=== PATIENT | male | born 1970 | race Caucasian/White ===

== ENCOUNTER 2018-03-27 01:32 | Inpatient (IN) | payer SELFPAY ==
[2018-03-27] MEDS ORDERED: RINGERS SOLUTION,LACTATED 2,000 ML IV ONE (01:39)
[2018-03-27] MEDS ORDERED: ACETAMINOPHEN 325 MG TABLET PO ONE (01:47)
[2018-03-27] MEDS ORDERED: IPRATROPIUM/ALBUTEROL 0.5-2.5 MG/3 ML AMPUL NEB ONE (01:49)
--- NOTE | 2018-03-27 01:49 | ER Document Report ---
ED General - General Chief Complaint: High Blood Sugar Stated Complaint: BLOOD SUGAR PROBLEMS Time Seen by Provider: 03/27/18 01:38 Cannot obtain history due to: Uncooperative, Altered mental status Notes: Patient is a 47-year-old male with a past medical history of diabetes, noncompliant with medications who presents with 4 days of progressively worsening body aches, nausea, vomiting, lack of appetite and cough. The patient is a very poor historian, is unable to tell me whether or not he has had fever. Admits that he does not take his medications as prescribed. He is unable to tell me what improves or worsens his symptoms. EMS states that he was likewise very guarded with history providing with them. The patient is not from the area, has never been to this hospital. Patient denies a history of similar symptoms in the past. TRAVEL OUTSIDE OF THE [place] IN LAST 30 DAYS: No - Related Data Allergies/Adverse Reactions: No Known Allergies Allergy (Unverified 03/27/18 01:39) Past Medical History - General Information source: Patient, Emergency Med Personnel Cannot obtain history due to: Uncooperative, Altered mental status - Social History Smoking Status: Current Every Day Smoker Frequency of alcohol use: Occasional Drug Abuse: None Lives with: Alone Family History: Reviewed & Not Pertinent Review of Systems - Review of Systems Notes: Constitutional: Positive for body aches HENT: Negative for sore throat. Eyes: Negative for visual changes. Cardiovascular: Negative for chest pain. Respiratory: Positive cough and shortness of breath Gastrointestinal: Negative for abdominal pain, positive for nausea and vomiting Genitourinary: Negative for dysuria. Musculoskeletal: Negative for back pain. Skin: Negative for rash. Neurological: Negative for headaches, weakness or numbness. 10 point ROS negative except as marked above and in HPI. Physical Exam - Vital signs Vitals: Temp Pulse Resp Pulse Ox 99.8 F 129 H 22 H 86 L 03/27/18 01:38 03/27/18 01:38 03/27/18 01:38 03/27/18 01:38 Interpretation: Tachycardic, Hypoxic, Tachypneic Notes: PHYSICAL EXAMINATION: GENERAL: Ill in appearance but in no acute distress HEAD: Atraumatic, normocephalic. EYES: Pupils equal round and reactive to light, extraocular movements intact, sclera anicteric, conjunctiva are normal. ENT: nares patent, oropharynx clear without exudates. Dry mucous membranes. NECK: Normal range of motion, supple without lymphadenopathy LUNGS: Scattered wheezing all lung nails. Mild tachypnea. No distress. HEART: Regular tachycardia without murmurs ABDOMEN: Soft, nontender, normoactive bowel sounds. No guarding, no rebound. No masses appreciated. EXTREMITIES: Normal range of motion, no pitting or edema. No cyanosis. NEUROLOGICAL: No focal neurological deficits. Moves all extremities spontaneously and on command. PSYCH: Extremely poor historian. Somewhat lethargic but does SKIN: Warm, Dry, there is what appears to be a healing area of cellulitis to the left pelvic region without any active fluctuance or warmth to palpation. Course - Re-evaluation Re-evalutation: 03/27/18 01:47 Patient is an ill-appearing 47-year-old male who presents tachycardic, hypoxemic, and somewhat lethargic although does respond to all questions appro priately. Patient does report for the past 1 week he has had progressive deterioration with cough, subjective fever, body aches and hyperglycemia. He is type II diabetic, noncompliant with medications and his blood glucose in the field was 546. Field lactate testing was 3.4. The patient does also have a healing area of cellulitis to his left lower abdomen just above the pubis symphysis. There is a scabbed over area when pullback there is a scant amount of purulent drainage although no appreciable fluid collection. Patient has been started on aggressive IV fluid rehydration with 2 L of lactated Ringer's, labs, chest x-ray and influenza testing will be completed. Primary concern at this point is for a possible diabetic ketoacidosis in conjunction with a probable pneumonia versus influenza. Patient is in guarded condition, will require frequent and regular reassessments. 03/27/18 02:35 Patient is flu a positive which is consistent with his clinical picture of tachycardia, hypoxemia and has an associated hyperglycemia without evidence of DKA or HHS. He is continued to receive IV fluids. Given that he is ill enough to require hospitalization oseltamivir has been initiated. Awaiting chest x-ray and the remainder of labs. Will continue to reassess at regular intervals. Patient does remain tachycardic although is no longer hypoxemic on 4 L of supplemental nasal cannula which he does not normally use. 03/27/18 03:16 Chest x-ray does show a visible left lower lobe pneumonia. Levofloxacin has likewise been initiated. I have discussed with the hospitalist who has accepted the patient for admission. - Vital Signs Vital signs: Temp Pulse Resp BP Pulse Ox 99.8 F 129 H 22 H 137/87 H 91 L 03/27/18 01:38 03/27/18 01:47 03/27/18 02:00 03/27/18 01:47 03/27/18 02:00 - Laboratory Result Diagrams: 03/27/18 00:53 03/27/18 00:53 Laboratory results interpreted by me: 03/27/18 03/27/18 03/27/18 00:53 00:53 00:53 WBC 23.6 H Seg Neuts % (Manual) 87 H Lymphocytes % (Manual) 6 L Abs Neuts (Manual) 21.5 H Sodium 128.3 L Chloride 79 L Carbon Dioxide 31 H BUN 23 H Glucose 477 H* Hemoglobin A1c % 11.3 H Calcium 10.4 H Direct Bilirubin 0.5 H ALT 16 L Alkaline Phosphatase 174 H Total Protein 8.4 H Urine Protein Urine Glucose (UA) Urine Ketones Urine Blood 03/27/18 02:01 WBC Seg Neuts % (Manual) Lymphocytes % (Manual) Abs Neuts (Manual) Sodium Chloride Carbon Dioxide BUN Glucose Hemoglobin A1c % Calcium Direct Bilirubin ALT Alkaline Phosphatase Total Protein Urine Protein 30 H Urine Glucose (UA) >=500 H Urine Ketones 80 H Urine Blood SMALL H - Diagnostic Test Radiology reviewed: Image reviewed, Reports reviewed Radiology results interpreted by me: 03/27/18 03:19 Chest x-ray: Left lower lobe infiltrate - EKG Interpretation by Me Additional EKG results interpreted by me: 03/27/18 03:20 Sinus tachycardia, rate 128. No ST elevations or runs. QTC is 450. Critical Care Note - Critical Care Note Total time excluding time spent on procedures (mins): 38 Comments: Critical care time spent obtaining history from patient or surrogate, discussions with consultants, development of treatment plan with patient or surrogate, evaluation of patient's response to treatment, examination of patient, ordering and performing treatments and interventions, ordering and review of laboratory studies, re-evaluation of patient's condition, ordering and review of radiographic studies and review of old charts Discharge - Discharge Clinical Impression: Influenza, Hypoxia, Hyperglycemia Left lower lobe pneumonia Qualifiers: Pneumonia type: due to unspecified organism Qualified Code(s): J18.1 - Lobar pneumonia, unspecified organism Condition: Fair Disposition: ADMITTED INPATIENT Admitting Provider: Hospitalist Unit Admitted: [facility]
[2018-03-27 02:05] LABS: HEMATOCRIT 48.2 % (37.9-51.0); HEMOGLOBIN 16.8 g/dL (13.5-17.0); MEAN CORPUSCULAR HEMOGLOBIN 31.3 pg (27.0-33.4); MEAN CORPUSCULAR HGB CONC 34.9 g/dL (32.0-36.0); MEAN CORPUSCULAR VOLUME 90 fl (80-97); PLATELET COUNT 303 10^3/uL (150-450); RED BLOOD COUNT 5.37 10^6/uL (4.35-5.55); WHITE BLOOD COUNT 23.6 10^3/uL (4.0-10.5)
[2018-03-27 02:15] LABS: APPEARANCE,URINE CLEAR; BILIRUBIN,URINE NEGATIVE (NEGATIVE); COLOR,URINE YELLOW; GLUCOSE, URINE >=500 mg/dL (NEGATIVE); KETONES,URINE 80 mg/dL (NEGATIVE); LEUKOCYTE ESTERASE,URINE NEGATIVE (NEGATIVE); NITRITE,URINE NEGATIVE (NEGATIVE); PROTEIN,URINE 30 mg/dL (NEGATIVE); URINE SPECIFIC GRAVITY 1.028; UROBILINOGEN,URINE NEGATIVE mg/dL (<2.0)
[2018-03-27 02:18] LABS: ALANINE AMINOTRANSFERASE 16 U/L (21-72); ALBUMIN 4.2 g/dL (3.5-5.0); ALKALINE PHOSPHATASE 174 U/L (38-126); ANION GAP 18 (5-19); ASPARTATE AMINO TRANSFERASE 29 U/L (17-59); BILIRUBIN,DIRECT 0.5 mg/dL (0.0-0.4); BLOOD UREA NITROGEN 23 mg/dL (7-20); CALCIUM 10.4 mg/dL (8.4-10.2); CARBON DIOXIDE 31 mmol/L (22-30); CHLORIDE 79 mmol/L (98-107); POTASSIUM 4.6 mmol/L (3.6-5.0); SODIUM 128.3 mmol/L (137-145); TOTAL PROTEIN 8.4 g/dL (6.3-8.2)
[2018-03-27 02:27] LABS: GLUCOSE 477 mg/dL (75-110)
[2018-03-27 02:31] LABS: A TYPE INFLUENZA AG POSITIVE (NEGATIVE); B INFLUENZA AG NEGATIVE (NEGATIVE)
[2018-03-27 02:34] LABS: ABSOLUTE LYMPHOCYTES# (MANUAL) 1.4 10^3/uL (0.5-4.7); ABSOLUTE MONOCYTES # (MANUAL) 0.7 10^3/uL (0.1-1.4); ABSOLUTE NEUTROPHILS# (MANUAL) 21.5 10^3/uL (1.7-8.2); BAND NEUTROPHILS % (MANUAL) 4 % (3-5); BASOPHILS % (MANUAL) 0 % (0-2); EOSINOPHILS % (MANUAL) 0 % (0-6); LYMPHOCYTES % (MANUAL) 6 % (13-45); MONOCYTES % (MANUAL) 3 % (3-13); SEGMENTED NEUTROPHILS % (MAN) 87 % (42-78); TOTAL CELLS COUNTED 100
[2018-03-27] MEDS ORDERED: OSELTAMIVIR PHOSPHATE 75 MG CAPSULE PO ONE (02:34)
[2018-03-27 02:37] LABS: TOXIC GRANULATION SLIGHT
[2018-03-27 02:38] LABS: PLATELET COMMENT ADEQUATE; TEAR DROP CELLS 1+
[2018-03-27 02:53] LABS: VENOUS BLOOD BASE EXCESS 0.7 mmol/L; VENOUS BLOOD HCO3 26.3 mmol/L (20-32); VENOUS BLOOD PCO2 45.5 mmHg (35-63); VENOUS BLOOD PH 7.38 (7.30-7.42)
--- NOTE | 2018-03-27 03:07 | RADIOLOGY REPORT (SQ) ---
EXAM DESCRIPTION: XR CHEST 1 VIEW COMPLETED DATE/TME: 03/27/2018 01:39 CLINICAL HISTORY: 47 years, Male, left rib pain COMPARISON: None. NUMBER OF VIEWS: 1 TECHNIQUE: Frontal view chest LIMITATIONS: None. FINDINGS: The heart size is normal. Airspace opacity in the left lung base extending to the left perihilar region likely reflecting pneumonia. Recommend follow-up to resolution. No pneumothorax. IMPRESSION: Left basilar/left perihilar pneumonia. Recommend follow-up to resolution copyright 2010 [employer]- All Rights Reserved
[2018-03-27] MEDS ORDERED: LEVOFLOXACIN 750 MG/D5W RTU 750 MG/150 ML RTUPB IV ONE (03:15)
[2018-03-27] MEDS ORDERED: RINGERS SOLUTION,LACTATED 1,000 ML IV ONE (03:19)
[2018-03-27] MEDS ORDERED: INSULIN REG, HUMAN 100 UNIT/ML 3 ML VIAL (PYX) IV ONE (03:19)
[2018-03-27] MEDS ORDERED: ONDANSETRON 4 MG TAB.RAPDIS PO PRN (04:02)
[2018-03-27] MEDS ORDERED: MAGNESIUM HYDROXIDE SUSP 30 ML UDCUP PO PRN (04:02)
[2018-03-27] MEDS ORDERED: NORMAL SALINE 1000 ML 1,000 ML IV PRN (04:02)
[2018-03-27] MEDS ORDERED: ONDANSETRON HCL INJ/PF 4 MG/2 ML SDV IV PRN (04:02)
[2018-03-27] MEDS ORDERED: MAG HYDROX/AL HYDROX/SIMETH SUSP 30 ML UDCUP PO PRN (04:02)
[2018-03-27] MEDS ORDERED: MORPHINE SULFATE 10 MG/ML INJ IV PRN (04:08)
[2018-03-27] MEDS ORDERED: ACETAMINOPHEN 650 MG SUPP.RECT PR PRN (04:11)
[2018-03-27] MEDS ORDERED: DEXTROSE 50%-WATER 25 GM/50 ML DISP.SYRIN IV PRN ×2 (04:12)
[2018-03-27] MEDS ORDERED: DEXTROSE 40% GEL 15 GM TUBE PO PRN ×2 (04:12)
[2018-03-27] MEDS ORDERED: GLUCAGON,HUMAN RECOMB 1 MG INJ IM PRN (04:12)
[2018-03-27] MEDS: MORPHINE SULFATE 10 MG/ML INJ IV PRN ×4 (05:57→21:57)
[2018-03-27] MEDS: HEPARIN SOD (PORCINE) 5,000 UNIT/ML 1 ML SYRINGE SUBCUT SCH ×3 (05:58→21:47)
[2018-03-27] MEDS: INSULIN REG, HUMAN 100 UNIT/ML 3 ML VIAL (PYX) SUBCUT PRN ×4 (06:14→23:52)
--- NOTE | 2018-03-27 06:33 | PDOC H&P ---
History of Present Illness Admission Date/PCP: 03/27/18 03:29 Patient complains of: Malaise History of Present Illness: TYRELL FLORES is a 47 year old male who presented to the emergency room with a 4-day history of progressively worsening malaise. He admitted body aches (chest and torso) with associated decrease in appetite as well as a nonproductive paroxysmal cough with rare post-tussive emesis. He currently rates his malaise/body aches as severe and denies prior similar episodes. The body (especially chest) pain is made much worse by coughing. He has not identified any other aggravating or any ameliorating factors for his malaise/body aches and he has not taken anything to treat his symptoms at home. He admits that he does not take his prescribed medications or follow a recommended diet for his diabetes. In the emergency room he was found to be severely hyperglycemic as well as influenza A positive. He was also noted to have a significant misael kocytosis and a left lower lobe interstitial pneumonia on his chest x-ray. He was noted to be significantly hypoxic and required supplemental oxygen to maintain an adequate O2 saturation. With these findings he was admitted to the hospital for further evaluation and treatment. Past Medical History Cardiac Medical History: Denies: Coronary Artery Disease, DVT, Myocardial Infarction, Hypertension, Pulmonary Embolism Pulmonary Medical History: Denies: Asthma, Chronic Obstructive Pulmonary Disease (COPD), Sleep Apnea, Tuberculosis EENT Medical History: Reports: None Neurological Medical History: Denies: Multiple Sclerosis, Seizures Endocrine Medical History: Reports: Diabetes Mellitus Type 2 Denies: Diabetes Mellitus Type 1, Obesity Renal/ Medical History: Denies: Chronic Kidney Disease, Nephrolithiasis Malignancy Medical History: Reports: None GI Medical History: Denies: Cirrhosis, Hepatitis Musculoskeltal Medical History: Denies: Arthritis, Gout Skin Medical History: Denies: Eczema, Psoriasis Psychiatric Medical History: Reports: Tobacco Dependency Denies: Alcohol Dependency, Substance Abuse Traumatic Medical History: Reports: None Hematology: Denies: Anemia, Bleeding Tendencies Infectious Medical History: Reports: None Past Surgical History Past Surgical History: Reports: Appendectomy Social History Information Source: Patient Lives with: Alone Smoking Status: Current Every Day Smoker Frequency of Alcohol Use: None Hx Recreational Drug Use: No Drugs: None Hx Prescription Drug Abuse: No - Advance Directive Resuscitation Status: Full Code Surrogate healthcare decision maker:: Elvie Alba Family History Family History: DM Parental Family History Reviewed: Yes Children Family History Reviewed: No Sibling(s) Family History Reviewed.: Yes Medication/Allergy Allergies/Adverse Reactions: No Known Allergies Allergy (Unverified 03/27/18 01:39) Review of Systems Constitutional: PRESENT: as per HPI, fatigue, other - Malaise. ABSENT: chills, fever(s) Eyes: ABSENT: visual disturbances, other - Ocular pain Ears: ABSENT: hearing changes, other - Ear pain Nose, Mouth, and Throat: ABSENT: mouth pain, sore throat Cardiovascular: PRESENT: as per HPI, chest pain, dyspnea on exertion. ABSENT: edema, orthropnea, palpitations Respiratory: PRESENT: cough, dyspnea. ABSENT: hemoptysis, sputum Gastrointestinal: PRESENT: nausea, vomiting. ABSENT: abdominal pain, constipation, diarrhea Genitourinary: ABSENT: dysuria, hematuria Musculoskeletal: ABSENT: deformity, joint swelling Integumentary: ABSENT: pruritus, rash Neurological: ABSENT: confusion, convulsions, memory loss Psychiatric: ABSENT: anxiety, depression Endocrine: ABSENT: cold intolerance, heat intolerance Hematologic/Lymphatic: ABSENT: easy bleeding, easy bruising Physical Exam Vital Signs: Temp Pulse Resp BP Pulse Ox 99.8 F 129 H 21 H 102/70 97 03/27/18 01:38 03/27/18 01:47 03/27/18 03:01 03/27/18 03:01 03/27/18 03:01 Intake & Output 03/25/18 03/26/18 03/27/18 23:59 23:59 23:59 Intake Total 1999 Balance 1999 Weight 66.7 kg General appearance: PRESENT: no acute distress, cooperative Head exam: PRESENT: atraumatic, normocephalic Eye exam: PRESENT: conjunctiva pink, EOMI. ABSENT: scleral icterus Ear exam: PRESENT: normal external ear exam. ABSENT: drainage Mouth exam: PRESENT: dry mucosa, neck supple Neck exam: ABSENT: thyromegaly, tracheal deviation Respiratory exam: PRESENT: symmetrical, tachypnea. ABSENT: accessory muscle use, retraction Cardiovascular exam: PRESENT: RRR. ABSENT: clicks, gallop, rubs Pulses: PRESENT: normal radial pulses, normal dorsalis pedis pul Vascular exam: PRESENT: normal capillary refill. ABSENT: pallor GI/Abdominal exam: PRESENT: normal bowel sounds, soft Rectal exam: PRESENT: deferred Extremities exam: ABSENT: joint swelling, pedal edema Musculoskeletal exam: PRESENT: ambulatory. ABSENT: deformity, dislocation Neurological exam: PRESENT: alert, oriented to person, oriented to place, oriented to time, oriented to situation, CN II-XII grossly intact. ABSENT: motor sensory deficit Psychiatric exam: PRESENT: appropriate affect, normal mood Skin exam: PRESENT: dry, intact, warm. ABSENT: jaundice, rash, urticaria Results Laboratory Results: 03/27/18 00:53 03/27/18 00:53 03/27/18 03/27/18 03/27/18 00:53 00:53 02:01 WBC 23.6 H RBC 5.37 Hgb 16.8 Hct 48.2 MCV 90 MCH 31.3 MCHC 34.9 RDW 13.0 Plt Count 303 Seg Neutrophils % Not Reportable Lymphocytes % Not Reportable Monocytes % Not Reportable Eosinophils % Not Reportable Basophils % Not Reportable Absolute Neutrophils Not Reportable Absolute Lymphocytes Not Reportable Absolute Monocytes Not Reportable Absolute Eosinophils Not Reportable Absolute Basophils Not Reportable VBG pH VBG pCO2 VBG HCO3 VBG Base Excess Sodium 128.3 L Potassium 4.6 Chloride 79 L Carbon Dioxide 31 H Anion Gap 18 BUN 23 H Creatinine 0.78 Est GFR ( Amer) > 60 Est GFR (Non-Af Amer) > 60 Glucose 477 H* Lactic Acid Calcium 10.4 H Total Bilirubin 1.0 AST 29 ALT 16 L Alkaline Phosphatase 174 H Total Protein 8.4 H Albumin 4.2 Urine Color YELLOW Urine Appearance CLEAR Urine pH 5.0 Ur Specific [place] 1.028 Urine Protein 30 H Urine Glucose (UA) >=500 H Urine Ketones 80 H Urine Blood SMALL H Urine Nitrite NEGATIVE Ur Leukocyte Esterase NEGATIVE Urine WBC (Auto) 1 03/27/18 03/27/18 02:38 02:38 WBC RBC Hgb Hct MCV MCH MCHC RDW Plt Count Seg Neutrophils % Lymphocytes % Monocytes % Eosinophils % Basophils % Absolute Neutrophils Absolute Lymphocytes Absolute Monocytes Absolute Eosinophils Absolute Basophils VBG pH 7.38 VBG pCO2 45.5 VBG HCO3 26.3 VBG Base Excess 0.7 Sodium Potassium Chloride Carbon Dioxide Anion Gap BUN Creatinine Est GFR ( Amer) Est GFR (Non-Af Amer) Glucose Lactic Acid 2.6 H Calcium Total Bilirubin AST ALT Alkaline Phosphatase Total Protein Albumin Urine Color Urine Appearance Urine pH Ur Specific [place] Urine Protein Urine Glucose (UA) Urine Ketones Urine Blood Urine Nitrite Ur Leukocyte Esterase Urine WBC (Auto) 03/27/18 00:53 Troponin I < 0.012 Impressions: Chest X-Ray 03/27/18 01:39 IMPRESSION: Left basilar/left perihilar pneumonia. Recommend follow-up to resolution copyright 2010 [email or web address]- All Rights Reserved Assessment & Plan - Diagnosis (1) SIRS due to infectious process with acute organ dysfunction Is this a current diagnosis for this admission?: Yes Plan: Patient will be served closely for signs of sepsis although this is most likely a influenza a caused systemic immune response syndrome. Serial determinations of patient's CBC and lactic acid should help to clarify the situation. His malaise and other general symptoms will be treated with Tylenol as needed for pain and additionally he will be able to use morphine sulfate administered intravenously on a sliding scale basis as needed for control of his discomfort. (2) Left lower lobe pneumonia Qualifiers: Pneumonia type: due to influenza A virus Qualified Code(s): J11.00 - Influenza due to unidentified influenza virus with unspecified type of pneumonia Is this a current diagnosis for this admission?: Yes Plan: Patient will be treated with an aggressive pulmonary toilet utilizing Xopenex, Atrovent, Pulmicort and albuterol. Empiric antibiotic therapy with Levaquin 750 mg daily as well as Tamiflu 75 mg p.o. twice daily will be initiated as patient is noted to be a cigarette smoker. (3) Acute respiratory failure with hypoxia Is this a current diagnosis for this admission?: Yes Plan: Patient will be treated with supplemental oxygen basis. Additionally he will receive symptomatic and supportive cares as required. (4) Diabetes mellitus type 2 in nonobese Is this a current diagnosis for this admission?: Yes Plan: A hemoglobin A1c will be obtained to evaluate the patient's diabetic care status. He will be initially treated with sliding scale regular insulin before meals and at bedtime. He will be started on a diabetic diet. Further treatment will be permanent after initial evaluation and therapy have been established long enough to determine further needs. (5) Influenza A Is this a current diagnosis for this admission?: Yes Plan: Patient will be treated with Tamiflu 75 mg p.o. twice daily and will otherwise receive symptomatic and supportive cares. - Time Time Spent: 30 to 50 Minutes Critical Time spent with patient: Less than 15 minutes Smoking Cessation Education: 3 to 10 minutes Anticipated discharge: Home - Inpatient Certification Based on my medical assessment, after consideration of the patient's comorbidities, presenting symptoms, or acuity I expect that the services needed warrant INPATIENT care.: Yes I certify that my determination is in accordance with my understanding of Medicare's requirements for reasonable and necessary INPATIENT services [42 CFR 412.3e].: Yes Medical Necessity: Significant Comorbidiites Make Outpatient Treatment Too Risky, Need Close Monitoring Due to Risk of Patient Decompensation, Need for Nebulizer Therapy and Monitoring of Response, Risk of Complication if Not Cared For in Hospital
[2018-03-27] MEDS: ACETYLCYSTEINE 20% SOLN 800 MG/4 ML VIAL.NEB NEB SCH ×2 (08:07→19:50)
[2018-03-27] MEDS: IPRATROPIUM BROMIDE 0.02% NEB 0.5 MG/2.5 ML AMPUL NEB SCH ×3 (08:14→23:48)
[2018-03-27] MEDS: LEVALBUTEROL HCL NEB 1.25 MG/3 ML AMPUL NEB SCH ×3 (08:14→23:48)
[2018-03-27] MEDS: BUDESONIDE NEB 0.5 MG/2 ML AMPUL NEB SCH ×2 (08:14→19:50)
[2018-03-27] MEDS: DOCUSATE SODIUM 100 MG CAPSULE PO SCH ×2 (10:07→17:13)
[2018-03-27] MEDS: LEVOFLOXACIN 750 MG TABLET PO SCH (10:07)
[2018-03-27] MEDS: FAMOTIDINE 20 MG TABLET PO SCH ×2 (10:07→21:46)
[2018-03-27] MEDS: OSELTAMIVIR PHOSPHATE 75 MG CAPSULE PO SCH ×2 (10:10→17:14)
[2018-03-27] MEDS ORDERED: INSULIN REG, HUMAN 100 UNIT/ML 3 ML VIAL (PYX) SUBCUT ONE (10:30)
[2018-03-27] MEDS: ACETAMINOPHEN 325 MG TABLET PO PRN ×2 (11:16→21:46)
[2018-03-27] MEDS: NORMAL SALINE 1000 ML 1,000 ML IV PRN ×2 (12:50→19:56)
--- NOTE | 2018-03-27 12:52 | EKG REPORT ---
SEVERITY:- BORDERLINE ECG - SINUS TACHYCARDIA ATRIAL PREMATURE COMPLEX BORDERLINE RIGHT AXIS DEVIATION BORDERLINE R WAVE PROGRESSION, ANTERIOR LEADS : Confirmed by: Alejandro Aburto 27-Mar-2018 12:51:32
[2018-03-27] MEDS: ALBUTEROL SULFATE 0.083% NEB 2.5 MG/3 ML AMPUL NEB PRN (19:50)
[2018-03-28] MEDS: NORMAL SALINE 1000 ML 1,000 ML IV PRN ×3 (03:01→20:09)
[2018-03-28] MEDS: HEPARIN SOD (PORCINE) 5,000 UNIT/ML 1 ML SYRINGE SUBCUT SCH ×3 (05:05→21:37)
[2018-03-28 06:20] LABS: HEMATOCRIT 35.6 % (37.9-51.0); MEAN CORPUSCULAR HEMOGLOBIN 30.8 pg (27.0-33.4); MEAN CORPUSCULAR HGB CONC 34.5 g/dL (32.0-36.0); MEAN CORPUSCULAR VOLUME 89 fl (80-97); PLATELET COUNT 195 10^3/uL (150-450); RED BLOOD COUNT 3.98 10^6/uL (4.35-5.55); RED CELL DISTRIBUTION WIDTH 12.9 % (11.5-14.0); WHITE BLOOD COUNT 16.4 10^3/uL (4.0-10.5)
[2018-03-28 06:38] LABS: ANION GAP 13 (5-19); BLOOD UREA NITROGEN 13 mg/dL (7-20); CALCIUM 8.2 mg/dL (8.4-10.2); CARBON DIOXIDE 24 mmol/L (22-30); CHLORIDE 92 mmol/L (98-107); GLUCOSE 225 mg/dL (75-110); SODIUM 128.6 mmol/L (137-145); TRIGLYCERIDES 203 mg/dL (<150)
[2018-03-28 06:51] LABS: DIRECT LDL < 30 mg/dL (<100); VLDL CHOLESTEROL 40.6 mg/dL (10-31)
[2018-03-28 07:07] LABS: HEMOGLOBIN 12.3 g/dL (13.5-17.0)
[2018-03-28 07:10] LABS: ABSOLUTE LYMPHOCYTES# (MANUAL) 1.5 10^3/uL (0.5-4.7); ABSOLUTE MONOCYTES # (MANUAL) 1.1 10^3/uL (0.1-1.4); ABSOLUTE NEUTROPHILS# (MANUAL) 13.8 10^3/uL (1.7-8.2); BASOPHILS % (MANUAL) 0 % (0-2); EOSINOPHILS % (MANUAL) 0 % (0-6); LYMPHOCYTES % (MANUAL) 9 % (13-45); MONOCYTES % (MANUAL) 7 % (3-13); SEGMENTED NEUTROPHILS % (MAN) 84 % (42-78); TOTAL CELLS COUNTED 100
[2018-03-28 07:11] LABS: PLATELET COMMENT ADEQUATE; RBC MORPHOLOGY COMMENT NORMO-CYTIC/CHROMIC
[2018-03-28] MEDS: ACETYLCYSTEINE 20% SOLN 800 MG/4 ML VIAL.NEB NEB SCH ×2 (08:16→20:11)
[2018-03-28] MEDS: BUDESONIDE NEB 0.5 MG/2 ML AMPUL NEB SCH ×2 (08:16→20:11)
[2018-03-28] MEDS: LEVALBUTEROL HCL NEB 1.25 MG/3 ML AMPUL NEB SCH ×2 (08:16→16:11)
[2018-03-28] MEDS: IPRATROPIUM BROMIDE 0.02% NEB 0.5 MG/2.5 ML AMPUL NEB SCH ×2 (08:16→16:11)
[2018-03-28] MEDS: INSULIN REG, HUMAN 100 UNIT/ML 3 ML VIAL (PYX) SUBCUT PRN ×3 (08:55→22:27)
[2018-03-28] MEDS: DOCUSATE SODIUM 100 MG CAPSULE PO SCH ×2 (09:50→17:20)
[2018-03-28] MEDS: OSELTAMIVIR PHOSPHATE 75 MG CAPSULE PO SCH ×2 (09:50→17:19)
[2018-03-28] MEDS: LEVOFLOXACIN 750 MG TABLET PO SCH (09:50)
[2018-03-28] MEDS: FAMOTIDINE 20 MG TABLET PO SCH ×2 (09:52→21:37)
[2018-03-28] MEDS: ACETAMINOPHEN 325 MG TABLET PO PRN (13:38)
[2018-03-28] MEDS ORDERED: IBUPROFEN 800 MG TABLET PO PRN (14:58)
--- NOTE | 2018-03-28 15:05 | PDOC PROGRESS REPORT ---
Subjective Progress Note for:: 03/28/18 Subjective:: No adverse events overnight. Still running some elevated temperatures intermittently. He still feels pretty miserable. He is drinking some fluids but his urine is still pretty concentrated. His appetite is not very good. Reason For Visit: SIRS OF INFECTIOUS ETIOLOGY INFLUENZA A PNEUMONIA Physical Exam Vital Signs: Temp Pulse Resp BP Pulse Ox 100.1 F 133 H 20 120/73 95 03/28/18 11:50 03/28/18 11:50 03/28/18 11:50 03/28/18 11:50 03/28/18 11:50 Intake & Output 03/27/18 03/28/18 03/29/18 06:59 06:59 06:59 Intake Total 3000 3975 1525 Output Total 1150 1100 Balance 3000 2825 425 Weight 74.8 kg 79.2 kg General appearance: PRESENT: cooperative, disheveled, mild distress Teeth exam: PRESENT: poor dentation Respiratory exam: PRESENT: symmetrical, unlabored, other - Breath sounds are coarse. ABSENT: accessory muscle use, crackles, prolonged expiratory phas, rhonchi, stridor, tachypnea, wheezes Cardiovascular exam: PRESENT: tachycardia Vascular exam: PRESENT: normal capillary refill GI/Abdominal exam: PRESENT: normal bowel sounds, soft. ABSENT: distended, guarding, rebound, tenderness Extremities exam: ABSENT: clubbing, pedal edema Musculoskeletal exam: PRESENT: normal inspection. ABSENT: deformity Neurological exam: PRESENT: alert, awake, oriented to person, oriented to place, oriented to time, oriented to situation Psychiatric exam: PRESENT: flat affect Skin exam: PRESENT: dry, warm Results Laboratory Results: 03/28/18 05:06 03/28/18 05:06 03/27/18 03/28/18 03/28/18 18:50 05:06 05:06 WBC 16.4 H RBC 3.98 L Hgb 12.3 L D Hct 35.6 L MCV 89 MCH 30.8 MCHC 34.5 RDW 12.9 Plt Count 195 Seg Neutrophils % Not Reportable Lymphocytes % Not Reportable Monocytes % Not Reportable Eosinophils % Not Reportable Basophils % Not Reportable Absolute Neutrophils Not Reportable Absolute Lymphocytes Not Reportable Absolute Monocytes Not Reportable Absolute Eosinophils Not Reportable Absolute Basophils Not Reportable Sodium 128.6 L Potassium 4.0 Chloride 92 L Carbon Dioxide 24 Anion Gap 13 BUN 13 Creatinine 0.46 L Est GFR ( Amer) > 60 Est GFR (Non-Af Amer) > 60 Glucose 225 H Lactic Acid 1.4 Calcium 8.2 L Magnesium 2.0 Triglycerides 203 H Cholesterol 73.20 LDL Cholesterol Direct < 30 VLDL Cholesterol 40.6 H HDL Cholesterol 11 L 03/27/18 00:53 Troponin I < 0.012 Impressions: Chest X-Ray 03/27/18 01:39 IMPRESSION: Left basilar/left perihilar pneumonia. Recommend follow-up to resolution copyright 2011 [email or web address]- All Rights Reserved Assessment & Plan - Diagnosis (1) Acute respiratory failure with hypoxia Is this a current diagnosis for this admission?: Yes Plan: Continue supplemental O2 to maintain SPO2 greater than 90% (2) Influenza A Is this a current diagnosis for this admission?: Yes Plan: Continue Tamiflu and supportive care (3) Left lower lobe pneumonia Qualifiers: Pneumonia type: due to influenza A virus Qualified Code(s): J11.00 - Influenza due to unidentified influenza virus with unspecified type of pneumonia Is this a current diagnosis for this admission?: Yes Plan: He was started on Levaquin on admission in case there was a alicia mitten bacterial pneumonia. Cultures thus far been negative. - Time Time Spent with patient: 15-24 minutes
[2018-03-28] MEDS: ALBUTEROL SULFATE 0.083% NEB 2.5 MG/3 ML AMPUL NEB PRN (20:11)
[2018-03-28] MEDS: MORPHINE SULFATE 10 MG/ML INJ IV PRN (20:55)
[2018-03-29] MEDS: IPRATROPIUM BROMIDE 0.02% NEB 0.5 MG/2.5 ML AMPUL NEB SCH ×4 (00:29→23:55)
[2018-03-29] MEDS: LEVALBUTEROL HCL NEB 1.25 MG/3 ML AMPUL NEB SCH ×4 (00:29→23:55)
[2018-03-29] MEDS: MORPHINE SULFATE 10 MG/ML INJ IV PRN (01:09)
[2018-03-29] MEDS: NORMAL SALINE 1000 ML 1,000 ML IV PRN ×3 (03:14→17:21)
[2018-03-29] MEDS: HEPARIN SOD (PORCINE) 5,000 UNIT/ML 1 ML SYRINGE SUBCUT SCH ×3 (05:24→21:48)
[2018-03-29 06:06] LABS: HEMATOCRIT 34.9 % (37.9-51.0); HEMOGLOBIN 11.9 g/dL (13.5-17.0); MEAN CORPUSCULAR HEMOGLOBIN 30.6 pg (27.0-33.4); MEAN CORPUSCULAR HGB CONC 34.2 g/dL (32.0-36.0); MEAN CORPUSCULAR VOLUME 89 fl (80-97); PLATELET COUNT 214 10^3/uL (150-450); RED CELL DISTRIBUTION WIDTH 13.1 % (11.5-14.0); WHITE BLOOD COUNT 17.3 10^3/uL (4.0-10.5)
[2018-03-29 06:32] LABS: ABSOLUTE LYMPHOCYTES# (MANUAL) 1.2 10^3/uL (0.5-4.7); ABSOLUTE MONOCYTES # (MANUAL) 0.7 10^3/uL (0.1-1.4); ABSOLUTE NEUTROPHILS# (MANUAL) 15.4 10^3/uL (1.7-8.2); BASOPHILS % (MANUAL) 0 % (0-2); EOSINOPHILS % (MANUAL) 0 % (0-6); LYMPHOCYTES % (MANUAL) 7 % (13-45); MONOCYTES % (MANUAL) 4 % (3-13); SEGMENTED NEUTROPHILS % (MAN) 89 % (42-78); TOTAL CELLS COUNTED 100
[2018-03-29 06:33] LABS: PLATELET COMMENT ADEQUATE; RBC MORPHOLOGY COMMENT NORMO-CYTIC/CHROMIC
[2018-03-29 06:37] LABS: ANION GAP 11 (5-19); BLOOD UREA NITROGEN 9 mg/dL (7-20); CALCIUM 8.2 mg/dL (8.4-10.2); CARBON DIOXIDE 24 mmol/L (22-30); CHLORIDE 95 mmol/L (98-107); GLUCOSE 221 mg/dL (75-110); POTASSIUM 3.7 mmol/L (3.6-5.0); SODIUM 129.9 mmol/L (137-145)
[2018-03-29] MEDS: ACETYLCYSTEINE 20% SOLN 800 MG/4 ML VIAL.NEB NEB SCH ×2 (08:36→20:44)
[2018-03-29] MEDS: BUDESONIDE NEB 0.5 MG/2 ML AMPUL NEB SCH ×2 (08:36→20:44)
[2018-03-29] MEDS: INSULIN REG, HUMAN 100 UNIT/ML 3 ML VIAL (PYX) SUBCUT PRN ×3 (09:06→21:48)
[2018-03-29] MEDS: NICOTINE 21 MG/24 HR PATCH.TD24 TD PRN (09:07)
[2018-03-29] MEDS: LEVOFLOXACIN 750 MG TABLET PO SCH (09:07)
[2018-03-29] MEDS: FAMOTIDINE 20 MG TABLET PO SCH ×2 (09:07→21:47)
[2018-03-29] MEDS: DOCUSATE SODIUM 100 MG CAPSULE PO SCH ×2 (09:07→17:19)
[2018-03-29] MEDS: OSELTAMIVIR PHOSPHATE 75 MG CAPSULE PO SCH ×2 (09:08→17:19)
--- NOTE | 2018-03-29 15:59 | PDOC PROGRESS REPORT ---
Subjective Progress Note for:: 03/29/18 Subjective:: No adverse events overnight. He has been afebrile. I took him off his oxygen when I was in the room with him waited several minutes and went up with oxygen back on and he was sitting up in the bed talking to me not getting short of breath and his oxygen saturations were 90-92%. He has been tachycardic most the time he is here and was in the 120s while I was talking to him, he says his heart rate always runs high. Reason For Visit: SIRS OF INFECTIOUS ETIOLOGY INFLUENZA A PNEUMONIA Physical Exam Vital Signs: Temp Pulse Resp BP Pulse Ox 98.7 F 132 H 20 140/70 H 95 03/29/18 11:30 03/29/18 11:30 03/29/18 11:30 03/29/18 11:30 03/29/18 11:30 Intake & Output 03/28/18 03/29/18 03/30/18 06:59 06:59 06:59 Intake Total 3975 4536 1400 Output Total 1150 2950 750 Balance 2825 1586 650 Weight 79.2 kg 79.5 kg General appearance: PRESENT: no acute distress, cooperative, disheveled Teeth exam: PRESENT: poor dentation Respiratory exam: PRESENT: decreased breath sounds, symmetrical, unlabored. ABSENT: accessory muscle use, rales, rhonchi, tachypnea, wheezes Cardiovascular exam: PRESENT: tachycardia Vascular exam: PRESENT: normal capillary refill GI/Abdominal exam: PRESENT: normal bowel sounds, soft. ABSENT: distended, guarding, rebound, tenderness Extremities exam: ABSENT: clubbing, pedal edema Musculoskeletal exam: PRESENT: normal inspection. ABSENT: deformity Neurological exam: PRESENT: alert, awake, oriented to person, oriented to place, oriented to time, oriented to situation Psychiatric exam: PRESENT: appropriate affect, normal mood Skin exam: PRESENT: dry, warm Results Laboratory Results: 03/29/18 05:32 03/29/18 05:32 03/29/18 03/29/18 05:32 05:32 WBC 17.3 H RBC 3.90 L Hgb 11.9 L Hct 34.9 L MCV 89 MCH 30.6 MCHC 34.2 RDW 13.1 Plt Count 214 Seg Neutrophils % Not Reportable Lymphocytes % Not Reportable Monocytes % Not Reportable Eosinophils % Not Reportable Basophils % Not Reportable Absolute Neutrophils Not Reportable Absolute Lymphocytes Not Reportable Absolute Monocytes Not Reportable Absolute Eosinophils Not Reportable Absolute Basophils Not Reportable Sodium 129.9 L Potassium 3.7 Chloride 95 L Carbon Dioxide 24 Anion Gap 11 BUN 9 Creatinine 0.36 L Est GFR ( Amer) > 60 Est GFR (Non-Af Amer) > 60 Glucose 221 H Calcium 8.2 L Magnesium 1.9 03/27/18 00:53 Troponin I < 0.012 Impressions: Chest X-Ray 03/27/18 01:39 IMPRESSION: Left basilar/left perihilar pneumonia. Recommend follow-up to resolution copyright 2011 [employer]- All Rights Reserved Assessment & Plan - Diagnosis (1) Acute respiratory failure with hypoxia Is this a current diagnosis for this admission?: Yes Plan: Continue supplemental O2 to maintain SPO2 greater than 90%. Currently this seems resolved. (2) Influenza A Is this a current diagnosis for this admission?: Yes Plan: Continue Tamiflu and supportive care. He is also on Levaquin for coverage of a possible concomittent bacterial pneumonia, but his cultures have been negative. (3) Left lower lobe pneumonia Qualifiers: Pneumonia type: due to influenza A virus Qualified Code(s): J11.00 - Influenza due to unidentified influenza virus with unspecified type of pneumonia Is this a current diagnosis for this admission?: Yes Plan: He was started on Levaquin on admission in case there was a concomittant bacterial pneumonia. Cultures thus far been negative. - Time Time Spent with patient: 15-24 minutes
[2018-03-29] MEDS: METFORMIN HCL 500 MG TABLET PO SCH (17:19)
[2018-03-29] MEDS: ALBUTEROL SULFATE 0.083% NEB 2.5 MG/3 ML AMPUL NEB PRN (20:44)
[2018-03-29] MEDS: ACETAMINOPHEN 325 MG TABLET PO PRN (21:47)
[2018-03-30] MEDS: NORMAL SALINE 1000 ML 1,000 ML IV PRN ×2 (01:53→09:37)
[2018-03-30 05:07] LABS: HEMATOCRIT 35.5 % (37.9-51.0); HEMOGLOBIN 12.2 g/dL (13.5-17.0); MEAN CORPUSCULAR HEMOGLOBIN 30.8 pg (27.0-33.4); MEAN CORPUSCULAR HGB CONC 34.3 g/dL (32.0-36.0); MEAN CORPUSCULAR VOLUME 90 fl (80-97); PLATELET COUNT 242 10^3/uL (150-450); RED BLOOD COUNT 3.95 10^6/uL (4.35-5.55); RED CELL DISTRIBUTION WIDTH 13.8 % (11.5-14.0); WHITE BLOOD COUNT 17.1 10^3/uL (4.0-10.5)
[2018-03-30 05:29] LABS: ANION GAP 9 (5-19); BLOOD UREA NITROGEN 9 mg/dL (7-20); CALCIUM 8.2 mg/dL (8.4-10.2); CARBON DIOXIDE 27 mmol/L (22-30); CHLORIDE 95 mmol/L (98-107); GLUCOSE 312 mg/dL (75-110); POTASSIUM 3.3 mmol/L (3.6-5.0); SODIUM 131.3 mmol/L (137-145)
[2018-03-30] MEDS: HEPARIN SOD (PORCINE) 5,000 UNIT/ML 1 ML SYRINGE SUBCUT SCH ×2 (05:48→14:14)
[2018-03-30 06:37] LABS: ABSOLUTE LYMPHOCYTES# (MANUAL) 1.2 10^3/uL (0.5-4.7); ABSOLUTE MONOCYTES # (MANUAL) 1.5 10^3/uL (0.1-1.4); ABSOLUTE NEUTROPHILS# (MANUAL) 14.4 10^3/uL (1.7-8.2); BAND NEUTROPHILS % (MANUAL) 1 % (3-5); BASOPHILS % (MANUAL) 0 % (0-2); EOSINOPHILS % (MANUAL) 0 % (0-6); LYMPHOCYTES % (MANUAL) 7 % (13-45); MONOCYTES % (MANUAL) 9 % (3-13); PLATELET CLUMPS PRESENT; PLATELET COMMENT ADEQUATE; PLATELET LARGE PRESENT; SCHISTOCYTES 1+; SEGMENTED NEUTROPHILS % (MAN) 83 % (42-78); TOTAL CELLS COUNTED 100; TOXIC GRANULATION 2+
[2018-03-30] MEDS: INSULIN REG, HUMAN 100 UNIT/ML 3 ML VIAL (PYX) SUBCUT PRN (07:58)
[2018-03-30] MEDS: ACETYLCYSTEINE 20% SOLN 800 MG/4 ML VIAL.NEB NEB SCH (08:31)
[2018-03-30] MEDS: IPRATROPIUM BROMIDE 0.02% NEB 0.5 MG/2.5 ML AMPUL NEB SCH (08:31)
[2018-03-30] MEDS: LEVALBUTEROL HCL NEB 1.25 MG/3 ML AMPUL NEB SCH (08:31)
[2018-03-30] MEDS: BUDESONIDE NEB 0.5 MG/2 ML AMPUL NEB SCH (08:31)
[2018-03-30] MEDS ORDERED: INSULIN GLARGINE,HUM.REC.ANLOG 1,000 UNIT/10 ML UNIT SUBCUT ONE (08:48)
[2018-03-30] MEDS: FAMOTIDINE 20 MG TABLET PO SCH (09:38)
[2018-03-30] MEDS: NICOTINE 21 MG/24 HR PATCH.TD24 TD PRN (09:38)
[2018-03-30] MEDS: DOCUSATE SODIUM 100 MG CAPSULE PO SCH (09:38)
[2018-03-30] MEDS: METFORMIN HCL 500 MG TABLET PO SCH (09:38)
[2018-03-30] MEDS: LEVOFLOXACIN 750 MG TABLET PO SCH (09:38)
[2018-03-30] MEDS: OSELTAMIVIR PHOSPHATE 75 MG CAPSULE PO SCH (09:39)
[2018-03-30] MEDS ORDERED: METOPROLOL TARTRATE 25 MG TABLET PO SCH (10:00)
[2018-03-30 12:17] VITALS: BP 134/86
--- NOTE | 2018-03-30 16:12 | PDOC DISCHARGE SUMMARY ---
General - Admit/Disc Date/PCP Admission Date/Primary Care Provider: 03/27/18 03:29 Discharge Date: 03/30/18 - Discharge Diagnosis (1) Acute respiratory failure with hypoxia Is this a current diagnosis for this admission?: Yes Summary: Signed out AMA (2) Influenza A Is this a current diagnosis for this admission?: Yes Summary: Signed out AMA before treatment was completed (3) Left lower lobe pneumonia Is this a current diagnosis for this admission?: Yes Summary: Signed out AMA before treatment was completed - Additional Information Resuscitation Status: Full Code Home Medications: Insulin Lispro Protamin/Lispro [Humalog Mix 75-25 100 unit/mL] 10 unit SQ BID 03/27/18 Metformin HCl [Glucophage 500 mg Tablet] 500 mg PO BID 03/27/18 History of Present Illness History of Present Illness: TYRELL FLORES is a 47 year old male who presented to the emergency room with a 4-day history of progressively worsening malaise. He admitted body aches (chest and torso) with associated decrease in appetite as well as a nonproductive paroxys mal cough with rare post-tussive emesis. He currently rates his malaise/body aches as severe and denies prior similar episodes. The body (especially chest) pain is made much worse by coughing. He has not identified any other aggravating or any ameliorating factors for his malaise/body aches and he has not taken anything to treat his symptoms at home. He admits that he does not take his prescribed medications or follow a recommended diet for his diabetes. In the emergency room he was found to be severely hyperglycemic as well as influenza A positive. He was also noted to have a significant leukocytosis and a left lower lobe interstitial pneumonia on his chest x-ray. He was noted to be significantly hypoxic and required supplemental oxygen to maintain an adequate O2 saturation. With these findings he was admitted to the hospital for further evaluation and treatment. Hospital Course Hospital Course: The patient was started on Tamiflu and given oxygen support per nasal cannula, IV fluids, and supportive care. He was also empirically started on Levaquin in case he had a concomittant bacterial pneumonia. He improved some and will be able to get him off oxygen. He was still, however, profoundly tachycardic, today with a heart rate in the 140 despite starting some metoprolol. He said he always runs a fast heart rate, but I told him that a heart rate of 140-150 at rest was pathological. The patient wanted to leave the hospital and I told him leave yet because even that he was off oxygen, his breathing did not look entirely comfortable with mild exertion, and he was still tachycardic. He said he wanted to leave anyway. I strongly made the case for him to stay in the hospital, telling him that it would be dangerous for him if he left now, but he said he understood he was taking a big risk but he wanted to leave anyway. I cannot comment on his prognosis because he left AGAINST MEDICAL ADVICE. Physical Exam Vital Signs: Temp Pulse Resp BP Pulse Ox 98.8 F 136 H 20 134/86 H 92 03/30/18 11:56 03/30/18 11:56 03/30/18 11:56 03/30/18 11:56 03/30/18 11:56 Intake & Output 03/29/18 03/30/18 03/31/18 06:59 06:59 06:59 Intake Total 4536 5821 1473 Output Total 2950 3650 550 Balance 1586 2171 923 Weight 79.5 kg 80.6 kg Results Laboratory Results: 03/30/18 04:28 03/30/18 04:28 03/30/18 03/30/18 04:28 04:28 WBC 17.1 H RBC 3.95 L Hgb 12.2 L Hct 35.5 L MCV 90 MCH 30.8 MCHC 34.3 RDW 13.8 Plt Count 242 Seg Neutrophils % Not Reportable Lymphocytes % Not Reportable Monocytes % Not Reportable Eosinophils % Not Reportable Basophils % Not Reportable Absolute Neutrophils Not Reportable Absolute Lymphocytes Not Reportable Absolute Monocytes Not Reportable Absolute Eosinophils Not Reportable Absolute Basophils Not Reportable Sodium 131.3 L Potassium 3.3 L Chloride 95 L Carbon Dioxide 27 Anion Gap 9 BUN 9 Creatinine 0.42 L Est GFR ( Amer) > 60 Est GFR (Non-Af Amer) > 60 Glucose 312 H Calcium 8.2 L Magnesium 2.0 03/27/18 00:53 Troponin I < 0.012 Impressions: Chest X-Ray 03/27/18 01:39 IMPRESSION: Left basilar/left perihilar pneumonia. Recommend follow-up to resolution copyright 2011 [email or web address]- All Rights Reserved Qualifiers - * PATIENT BEING DISCHARGED WITH ANY OF THE FOLLOWING DIAGNOSIS: No
[2018-03-30] MEDS ORDERED: INSULIN GLARGINE,HUM.REC.ANLOG 1,000 UNIT/10 ML UNIT SUBCUT SCH (22:00)
[2018-03-30] MEDS ORDERED: INSULIN GLARGINE,HUM.REC.ANLOG 300 UNIT/3 ML INSULN.PEN SUBCUT SCH (22:00)
== END 2018-03-30 15:09 | disposition left against medical advice (07) | DRG 189 ==
LOC: ER 01:32 → EH 03:29 → 3W 06:30
PROVIDERS: ADMIT Emergency Medicine; ATTEND Emergency Medicine
DX: J96.01 Acute respiratory failure with hypoxia (principal); J11.00 Influenza due to unidentified influenza virus with unspecified type of pneumonia; E11.65 Type 2 diabetes mellitus with hyperglycemia; Z53.21 Procedure and treatment not carried out due to patient leaving prior to being seen by health care provider; F17.200 Nicotine dependence, unspecified, uncomplicated; Z91.14 Patient's other noncompliance with medication regimen
CPT/HCPCS: 36415; 71045; 80048; 80053; 80061; 81001; 82803; 82962; 83036; 83605; 83735; 84484; 85025; 87804; 93005; 93010; 94640; 96360; 99291; J1644; J1815; J1956; J2270; J2405; J3490; J7030; J7120; J7620